=== PATIENT | female | born 1980 | race Caucasian/White ===

== ENCOUNTER 2021-11-13 07:51 | Day surgery (SDC) | payer MEDICAID ==
[~2021-11-13] VITALS: Ht 162.6 cm; Wt 70.8 kg
[2021-11-13] MEDS ORDERED: DIPHENHYDRAMINE INJ 50 MG/ML VIAL ONE (08:40)
[2021-11-13] MEDS: MIDAZOLAM HCL 5 MG/5 ML VIAL ONE ×2 (10:10→10:12)
[2021-11-13] MEDS ORDERED: LIDOCAINE 2%, 20 ML MDV ONE (10:15)
[2021-11-13] MEDS ORDERED: methylPREDNISolone ACETATE 40 MG/ML ONE (10:15)
[2021-11-13] MEDS ORDERED: BUPIVACAINE /PF 0.25% 30 ML VIAL INJ ONE (10:15)
[2021-11-13] MEDS ORDERED: ISOVUE-300 (IOPAMIDOL) 100 ML INFUS..BTL IV ONE (10:15)
[2021-11-13 13:40] VITALS: BP_SYST 130
== END 2021-11-13 10:55 | disposition home or self-care (01) ==
LOC: SDS 07:51 → SMU 07:51 → SDS 10:55
PROVIDERS: ATTEND Internal Medicine
DX: M51.16 Intervertebral disc disorders with radiculopathy, lumbar region (principal); E11.9 Type 2 diabetes mellitus without complications; G40.909 Epilepsy, unspecified, not intractable, without status epilepticus; Z90.710 Acquired absence of both cervix and uterus; G89.4 Chronic pain syndrome; N20.0 Calculus of kidney; Z79.4 Long term (current) use of insulin; Z79.899 Other long term (current) drug therapy; Z20.822 Contact with and (suspected) exposure to COVID-19
CPT/HCPCS: 36415; 62323; 82962; U0003; J3490; J1200; J2001; J1030; J2250; Q9967; 76000

== ENCOUNTER 2023-02-11 08:39 | Day surgery (SDC) | payer MEDICAID ==
[~2023-02-11] VITALS: Ht 162.6 cm; Wt 71.2 kg
[2023-02-11] MEDS ORDERED: fentaNYL CITRATE/PF 100 MCG/2 ML AMP ONE (09:03)
[2023-02-11] MEDS ORDERED: MIDAZOLAM HCL 5 MG/5 ML VIAL ONE (09:03)
[2023-02-11] MEDS ORDERED: DIPHENHYDRAMINE INJ 50 MG/ML VIAL ONE (09:04)
[2023-02-11] MEDS ORDERED: ONDANSETRON HCL 4 MG/2 ML VIAL ONE (09:05)
[2023-02-11 12:05] VITALS: O2SAT 99
[2023-02-11 17:07] VITALS: BP_SYST 112; PULSE 86; RESP 16
== END 2023-02-11 13:15 | disposition home or self-care (01) ==
LOC: SDS 08:39 → SMU 08:41 → SDS 13:15
PROVIDERS: ATTEND Internal Medicine
DX: M51.16 Intervertebral disc disorders with radiculopathy, lumbar region (principal); G89.4 Chronic pain syndrome; M51.9 Unspecified thoracic, thoracolumbar and lumbosacral intervertebral disc disorder; G40.909 Epilepsy, unspecified, not intractable, without status epilepticus; N20.0 Calculus of kidney; E11.9 Type 2 diabetes mellitus without complications; Z90.710 Acquired absence of both cervix and uterus; Z88.0 Allergy status to penicillin; Z88.1 Allergy status to other antibiotic agents; Z88.8 Allergy status to other drugs, medicaments and biological substances; Z79.4 Long term (current) use of insulin; Z79.899 Other long term (current) drug therapy
CPT/HCPCS: 62323; 82962; J2250; 76000; J1200; J2405; J3010